=== PATIENT | female | born 1950 | race Caucasian/White ===

== ENCOUNTER 2018-11-17 13:42 | Emergency (ER) | payer MEDICARE, OTHER ==
--- NOTE | 2018-11-17 14:03 | ER Report ---
History and Physical Time Seen By MD: 14:03 Hx. of Stated Complaint: PATIENT REPORTS THAT SHE HAS BEEN HAVING ANXIETY ATTACKS FOR THE LAST YEAR. SHE REPORTS THAT SHE IS HAVING AN ANXIETY ATTACK TODAY AND SHE IS ALSO HAVING LOW BLOOD SUGAR ISSUES HPI/ROS CHIEF COMPLAINT: anxiety attacks, low blood sugars HISTORY OF PRESENT ILLNESS: This is a 68 year old female. She has severe anxiety. Her counselor moved from their practice in [place], and she no longer has a therapist. She lost her son at age [age] years old due to diabetes related complications. She is still struggling with this loss. Recently diagnosed with type 1 diabetes herself, and having frequent low blood sugars. 4 morning in the last week. This morning, EMS responded to her home, her blood sugar was 22. She take 13 units of Lantus at bedtime, and Humalog with meals, does not do correction dose, just estimated dose based on carbs. Tearful when talking to me. Wants to get set up with a counselor/therapist, needs a primary care doctor to help with her diabetes. Was hoping for some medication to help with severe anxiety while trying to get this set up. Home Meds Active Scripts Alprazolam (XANAX) 0.5 Mg Tablet, 1 TAB PO TID PRN for ANXIETY, #15 TAB 0 Refills Prov:PEYTON CASTELLANOS MD 11/17/18 Reviewed Nurses Notes: Yes Constitutional Vital Sign - Last 24 Hours 11/17/18 11/17/18 11/17/18 11/17/18 13:42 13:50 13:54 14:00 Pulse ??? 71 Resp 20 B/P (MAP) 124/68 (86) 124/68 159/86 (110) Pulse Ox 96 O2 Delivery Room Air 11/17/18 11/17/18 11/17/18 11/17/18 14:12 14:30 14:42 15:00 Pulse 66 65 B/P (MAP) 122/65 (84) 106/55 (72) Pulse Ox 93 96 11/17/18 11/17/18 15:12 15:30 Pulse 73 B/P (MAP) 111/56 (74) Pulse Ox 93 Physical Exam General: Tearful and very anxious. Psych: Mood is anxious with similar affect. No SI or HI. Normal thought and speech pattern and content. Medical Decision Making ED Course/Re-evaluation ED Course After discussing with the patient, we need to get her blood sugars from going dangerously low. Will accept a higher A1c for now until her anxiety and stress are better controlled and she can take further action. We discussed cutting back evening dose of Humalog (by half) and eating a bedtime snack. Part of the problem is that her diet is very inconsistent. However, she is not in a mental state for significant changes at this time. Recommended night time alarm clock and checking sugars to see what middle of the night time is doing. Discussed getting a insulin pump and a continuous monitor. Will fill Xanax 0.25mg small prescription now. Discussed need to use sparingly and addiction potential. Had behavioral health come and talk to her about community resources. Decision to Disposition Date: Nov 17, 2018 Decision to Disposition Time: 14:47 Depart Departure Latest Vital Signs Vital Signs Date Time Temp Pulse Resp B/P (MAP) Pulse Ox O2 Delivery O2 Flow Rate FiO2 11/17/18 15:30 111/56 (74) 11/17/18 15:12 73 93 11/17/18 13:54 20 Room Air Impression: Primary Impression: Hypoglycemia due to type 1 diabetes mellitus Additional Impression: Generalized anxiety disorder with panic attacks Condition: Improved Disposition: HOME OR SELF-CARE New Scripts Alprazolam (XANAX) 0.5 Mg Tablet 1 TAB PO TID PRN for ANXIETY, #15 TAB 0 Refills Prov: PEYTON CASTELLANOS MD 11/17/18 Patient Instructions: Hypoglycemia in a Person with Diabetes (ED) Additional Instructions: We are going to cut back on your insulin. Your blood sugars may run a little high while we do this, but we need to avoid the dangerous, life threatening low sugars. Later, when you are in a better place mentally and with all the stre ssors, you can work on ways to improve blood sugars. Remember to look into an insulin pump and a continuous blood sugar monitor when you are ready. Cut back your Lantus at bedtime by about 25-30%, so you would take about 8-10 units instead of 13. Cut your dinner time Humalog in half. Consider having a bed-time snack. Some patients check their blood sugar at bedtime to see if they need to eat something to carry their sugars through till morning. Some people will set an alarm in the middle of the night to check sugar levels and eat something at that time if needed. We want to get you set up with a primary care provider. We will provide a list for you. Behavioral health with talk to you about resources available in the community for counseling. We are going to give you a prescription for Xanax, limited supply. Use one every 6 hours as needed for severe anxiety attacks. Try not use use it unless severe. This medicine does have an addiction potential. Further refills will need to be done through your primary care provider. Problem Qualifiers PEYTON CASTELLANOS MD Nov 17, 2018 14:03
[2018-11-17] MEDS ORDERED: ALPR-429 PO (14:57)
[2018-11-17 15:30] VITALS: BP 111/56
== END 2018-11-17 15:45 | disposition home or self-care (01) ==
LOC: ER 14:33
DX: E10.649 Type 1 diabetes mellitus with hypoglycemia without coma (principal); F41.9 Anxiety disorder, unspecified
CPT/HCPCS: 36416; 82948; 99283